=== PATIENT | female | born 1930 | race Caucasian/White ===

== ENCOUNTER 2020-12-16 10:48 | Emergency (ER) | payer MEDICARE, OTHER ==
[2020-12-16 11:53] LABS: HEMOGLOBIN 10.3 gm/dl (12.3-15.3); RED BLOOD COUNT 3.51 M/UL (4.00-5.10); WHITE BLOOD COUNT 6.9 K/UL (4.5-11.0)
[2020-12-16 12:12] LABS: BUN/CREATININE RATIO 29 (0-10)
== END 2020-12-16 17:16 | disposition home or self-care (01) ==
LOC: ER1 10:48
PROVIDERS: Student in an Organized Health Care Education/Training Program
DX: M79.605 Pain in left leg (principal); R60.0 Localized edema; Z20.822 Contact with and (suspected) exposure to COVID-19; I10 Essential (primary) hypertension; E11.9 Type 2 diabetes mellitus without complications; E03.9 Hypothyroidism, unspecified; W19.XXXA Unspecified fall, initial encounter; Y92.129 Unspecified place in nursing home as the place of occurrence of the external cause
CPT/HCPCS: 72192; 73502; 73562; 80053; 82550; 82553; 83874; 83880; 84484; 85025; 85610; 85730; 93970; 96374; 96375; 99284; J2270; J2405; U0002